=== PATIENT | male | born 1955 | race Hispanic/Latino ===

== ENCOUNTER 2024-07-27 12:16 | Inpatient (IN) | payer OTHER ==
[2024-07-27 13:04] LABS: #Basophils 0.03 10x3/uL (0.0-0.2); %Basophils 0.4 % (0.0-1.0); %Eosinophils 1.1 % (0.0-10.0); %Lymphocytes 12.2 % (21.0-51.0); %Monocytes 6.2 % (0.0-10.0); %Neutrophils 79.8 % (42.0-75.0); Hematocrit 34.6 % (42.0-52.0); Hemoglobin 11.3 g/dL (14.0-18.0); Mean Corpuscular HGB CONC 32.7 g/dL (32.0-36.0); Mean Corpuscular Hemoglobin 29.8 pg (27.0-31.0); Mean Corpuscular Volume 91.3 fL (78.0-98.0); Mean Platelet Volume 12.1 fL (7.4-10.4); Platelet Count 135 10x3/uL (130-400); RBC Distribution Width 13.8 % (11.5-14.5); Red Blood Cell (RBC) Count 3.79 mill/uL (4.70-6.10)
[2024-07-27 13:20] LABS: ALT (SGPT) 14 U/L (8-55); AST (SGOT) 24 U/L (5-34); Albumin 4.1 g/dL (3.4-4.8); Alkaline Phosphatase 92 U/L (40-110); Anion Gap 12 mmol/L (10-20); BUN (Urea Nitrogen) 35 mg/dL (8.4-25.7); Bilirubin, Total 0.6 mg/dL (0.2-1.2); Calc. Creatinine Clearance 0 mL/min (70-130); Calcium 8.8 mg/dL (7.8-10.44); Carbon Dioxide 21 mmol/L (23-31); Chloride 110 mmol/L (98-107); Estimated GFR 45; Globulin 3.5 g/dL (2.4-3.5); Glucose 101 mg/dL (80-115); Potassium 4.3 mmol/L (3.5-5.1); Protein, Total 7.6 g/dL (5.8-8.1); Sodium 139 mmol/L (136-145)
[2024-07-27 13:26] LABS: Troponin I Less than 0.010 ng/mL (< 0.028)
[2024-07-27] MEDS ORDERED: Aspirin Chewable 81 MG TAB ONE (13:27)
[2024-07-27 14:09] LABS: INR-International Normal Ratio 3.1; PTT 50.4 sec (22.9-36.1); Prothrombin Time 32.2 sec (12.0-14.7)
[2024-07-27] MEDS ORDERED: Morphine 4 MG/ML VIAL ONE (15:22)
[2024-07-27] MEDS ORDERED: Nitroglycerin 0.4 MG TAB 1 EACH ONE (15:23)
[2024-07-27] MEDS ORDERED: traMADol HCl 50 MG TAB PO PRN ×2 (16:07→18:01)
[2024-07-27] MEDS ORDERED: Calcium Carbonate 500 MG ChewTAB PO PRN (16:07)
[2024-07-27 18:48] VITALS: BMI 26.2
[2024-07-27 19:14] LABS: Troponin I 0.012 ng/mL (< 0.028)
[2024-07-27] MEDS: Metoprolol Tartrate 25 MG TAB PO SCH (20:34)
[2024-07-27] MEDS ORDERED: Heparin 5,000 UNITS/ML VIAL SC SCH (21:00)
[2024-07-27] MEDS: Morphine 2 MG/ML VIAL SLOW IVP PRN (23:51)
[2024-07-28 01:12] LABS: Troponin I 0.017 ng/mL (< 0.028)
[2024-07-28 04:42] LABS: #Basophils 0.05 10x3/uL (0.0-0.2); %Basophils 0.8 % (0.0-1.0); %Eosinophils 2.2 % (0.0-10.0); %Lymphocytes 21.5 % (21.0-51.0); %Monocytes 10.1 % (0.0-10.0); %Neutrophils 65.1 % (42.0-75.0); Hematocrit 34.4 % (42.0-52.0); Mean Corpuscular Hemoglobin 29.3 pg (27.0-31.0); Mean Corpuscular Volume 91.7 fL (78.0-98.0); Mean Platelet Volume 12.4 fL (7.4-10.4); Platelet Count 151 10x3/uL (130-400); RBC Distribution Width 13.9 % (11.5-14.5); Red Blood Cell (RBC) Count 3.75 mill/uL (4.70-6.10)
[2024-07-28 04:54] LABS: INR-International Normal Ratio 2.7; Prothrombin Time 28.6 sec (12.0-14.7)
[2024-07-28 05:18] LABS: Hemoglobin A1c 5.3 % (4.0-6.0)
[2024-07-28 05:25] LABS: Anion Gap 11 mmol/L (10-20); BUN (Urea Nitrogen) 27 mg/dL (8.4-25.7); Calc. Creatinine Clearance 49 mL/min (70-130); Calcium 8.8 mg/dL (7.8-10.44); Carbon Dioxide 23 mmol/L (23-31); Cardiac Risk 4.8 (Less than 4.5); Chloride 109 mmol/L (98-107); Cholesterol 169 mg/dl (< 200 Desired); Estimated GFR 48; Glucose 86 mg/dL (80-115); HDL Cholesterol 35 mg/dL (>60 Neg Risk); LDL Cholesterol, Calculated 106 mg/dL; Sodium 139 mmol/L (136-145); Triglycerides 139 mg/dL (Less than 150)
[2024-07-28] MEDS: Aspirin Chewable 81 MG TAB PO SCH (08:37)
[2024-07-28] MEDS: dilTIAZem CD 180 MG CAP PO SCH (10:46)
[2024-07-28] MEDS: Warfarin Sodium 3 MG TAB PO SCH (17:37)
[2024-07-28] MEDS: DOBUTamine 500 mg/250 ml 250 ML IVPB SCH (18:02)
[2024-07-29] MEDS: Lorazepam 2 MG/ML VIAL SLOW IVP SCH (01:00)
[2024-07-29 04:05] LABS: #Basophils Less than 0.03 10x3/uL (0.0-0.2); %Basophils 0.3 % (0.0-1.0); %Eosinophils 1.8 % (0.0-10.0); %Lymphocytes 22.4 % (21.0-51.0); %Monocytes 9.3 % (0.0-10.0); Hematocrit 36.4 % (42.0-52.0); Hemoglobin 12.1 g/dL (14.0-18.0); Mean Corpuscular HGB CONC 33.2 g/dL (32.0-36.0); Mean Corpuscular Hemoglobin 29.7 pg (27.0-31.0); Mean Corpuscular Volume 89.2 fL (78.0-98.0); Mean Platelet Volume 11.9 fL (7.4-10.4); Platelet Count 130 10x3/uL (130-400); RBC Distribution Width 13.7 % (11.5-14.5); Red Blood Cell (RBC) Count 4.08 mill/uL (4.70-6.10)
[2024-07-29 04:22] LABS: INR-International Normal Ratio 2.4
[2024-07-29 04:23] LABS: Anion Gap 14 mmol/L (10-20); BUN (Urea Nitrogen) 29 mg/dL (8.4-25.7); Calc. Creatinine Clearance 55 mL/min (70-130); Calcium 9.5 mg/dL (7.8-10.44); Carbon Dioxide 18 mmol/L (23-31); Chloride 110 mmol/L (98-107); Estimated GFR 55; Glucose 86 mg/dL (80-115); Potassium 4.2 mmol/L (3.5-5.1); Sodium 138 mmol/L (136-145)
[2024-07-29] MEDS ORDERED: dilTIAZem CD 120 MG CAP PO SCH (09:00)
[2024-07-29] MEDS ORDERED: dilTIAZem CD 180 MG CAP PO SCH (09:00)
[2024-07-29] MEDS: NIFEdipine XL 60 MG ER.TAB PO SCH (18:05)
[2024-07-29] MEDS: Tamsulosin HCl 0.4 MG CAP PO SCH (18:05)
[2024-07-29] MEDS: Nitroglycerin 0.4 MG TAB (25 Tab Bottle) SL PRN (21:59)
[2024-07-30 05:51] LABS: #Basophils 0.04 10x3/uL (0.0-0.2); %Basophils 0.6 % (0.0-1.0); %Eosinophils 1.8 % (0.0-10.0); %Lymphocytes 17.4 % (21.0-51.0); %Monocytes 8.9 % (0.0-10.0); Hematocrit 34.5 % (42.0-52.0); Hemoglobin 11.4 g/dL (14.0-18.0); Mean Corpuscular Hemoglobin 29.4 pg (27.0-31.0); Mean Corpuscular Volume 88.9 fL (78.0-98.0); Mean Platelet Volume 12.3 fL (7.4-10.4); Platelet Count 146 10x3/uL (130-400); RBC Distribution Width 13.6 % (11.5-14.5); Red Blood Cell (RBC) Count 3.88 mill/uL (4.70-6.10)
[2024-07-30 06:05] LABS: INR-International Normal Ratio 2.4; PTT 38.1 sec (22.9-36.1); Prothrombin Time 26.2 sec (12.0-14.7)
[2024-07-30 06:08] LABS: Anion Gap 12 mmol/L (10-20); BUN (Urea Nitrogen) 35 mg/dL (8.4-25.7); Calc. Creatinine Clearance 39 mL/min (70-130); Calcium 9.1 mg/dL (7.8-10.44); Carbon Dioxide 22 mmol/L (23-31); Chloride 105 mmol/L (98-107); Estimated GFR 37; Glucose 93 mg/dL (80-115); Potassium 4.3 mmol/L (3.5-5.1); Sodium 135 mmol/L (136-145)
[2024-07-30] MEDS: NIFEdipine XL 60 MG ER.TAB PO SCH (08:44)
[2024-07-30] MEDS: Losartan 25 MG TAB PO SCH (08:45)
[2024-07-30] MEDS: Tamsulosin HCl 0.4 MG CAP PO SCH (08:45)
[2024-07-30] MEDS: Acetaminophen 325 MG TAB PO PRN (09:37)
[2024-07-30 12:17] LABS: Troponin I 0.018 ng/mL (< 0.028)
[2024-07-30] MEDS: Lactated Ringer's 500 ML IV SCH (13:21)
[2024-07-30] MEDS: Enoxaparin 60 MG (0.6 mL) SYRINGE SC SCH (14:01)
[2024-07-30 14:58] LABS: Troponin I 0.019 ng/mL (< 0.028)
[2024-07-30 17:00] LABS: Troponin I 0.022 ng/mL (< 0.028)
[2024-07-30] MEDS: Enoxaparin 80 MG (0.8 mL) SYRINGE SC SCH (20:45)
[2024-07-30] MEDS: Melatonin 3 MG TAB PO PRN (22:04)
[2024-07-31 05:14] LABS: #Basophils 0.03 10x3/uL (0.0-0.2); %Basophils 0.5 % (0.0-1.0); %Eosinophils 2.2 % (0.0-10.0); %Lymphocytes 19.4 % (21.0-51.0); %Monocytes 8.9 % (0.0-10.0); %Neutrophils 68.5 % (42.0-75.0); Hematocrit 33.1 % (42.0-52.0); Hemoglobin 11.1 g/dL (14.0-18.0); Mean Corpuscular HGB CONC 33.5 g/dL (32.0-36.0); Mean Corpuscular Hemoglobin 29.4 pg (27.0-31.0); Mean Corpuscular Volume 87.8 fL (78.0-98.0); Platelet Count 151 10x3/uL (130-400); RBC Distribution Width 13.7 % (11.5-14.5); Red Blood Cell (RBC) Count 3.77 mill/uL (4.70-6.10)
[2024-07-31 05:27] LABS: INR-International Normal Ratio 2.5; PTT 67.8 sec (22.9-36.1); Prothrombin Time 26.9 sec (12.0-14.7)
[2024-07-31 05:30] LABS: Anion Gap 12 mmol/L (10-20); BUN (Urea Nitrogen) 35 mg/dL (8.4-25.7); Calc. Creatinine Clearance 47 mL/min (70-130); Calcium 8.8 mg/dL (7.8-10.44); Carbon Dioxide 21 mmol/L (23-31); Chloride 108 mmol/L (98-107); Estimated GFR 46; Glucose 81 mg/dL (80-115); Sodium 137 mmol/L (136-145)
[2024-07-31] MEDS: Enoxaparin 80 MG (0.8 mL) SYRINGE SC SCH (09:08)
[2024-07-31] MEDS: Nitroglycerin 0.4mg/Hour PATCH TD SCH (09:13)
[2024-07-31] MEDS: oxyCODONE 5 MG TAB PO PRN (15:29)
[2024-07-31] MEDS: Acetaminophen 500 MG TAB PO SCH (20:05)
[2024-08-01 05:19] LABS: #Basophils 0.04 10x3/uL (0.0-0.2); %Basophils 0.4 % (0.0-1.0); %Lymphocytes 10.9 % (21.0-51.0); %Monocytes 8.9 % (0.0-10.0); %Neutrophils 78.4 % (42.0-75.0); Hematocrit 37.2 % (42.0-52.0); Hemoglobin 12.7 g/dL (14.0-18.0); Mean Corpuscular HGB CONC 34.1 g/dL (32.0-36.0); Mean Corpuscular Hemoglobin 30.1 pg (27.0-31.0); Mean Corpuscular Volume 88.2 fL (78.0-98.0); Mean Platelet Volume 12.2 fL (7.4-10.4); Platelet Count 177 10x3/uL (130-400); RBC Distribution Width 13.5 % (11.5-14.5); Red Blood Cell (RBC) Count 4.22 mill/uL (4.70-6.10)
[2024-08-01 05:29] LABS: INR-International Normal Ratio 2.1; Prothrombin Time 23.8 sec (12.0-14.7)
[2024-08-01 05:30] LABS: PTT 66.2 sec (22.9-36.1)
[2024-08-01 05:39] LABS: Anion Gap 10 mmol/L (10-20); BUN (Urea Nitrogen) 30 mg/dL (8.4-25.7); Calc. Creatinine Clearance 48 mL/min (70-130); Calcium 9.1 mg/dL (7.8-10.44); Carbon Dioxide 24 mmol/L (23-31); Chloride 105 mmol/L (98-107); Estimated GFR 49; Glucose 98 mg/dL (83-110); Potassium 4.4 mmol/L (3.5-5.1); Sodium 135 mmol/L (136-145)
[2024-08-01] MEDS: Digoxin 0.5 MG/2 ML AMP SLOW IVP SCH (15:59)
[2024-08-01] MEDS: Metoprolol Tartrate 25 MG TAB PO SCH ×2 (16:00→20:10)
[2024-08-01] MEDS: oxyCODONE 5 MG TAB PO PRN (20:08)
[2024-08-01] MEDS: Enoxaparin 80 MG (0.8 mL) SYRINGE SC SCH (20:09)
[2024-08-02 04:11] LABS: #Basophils 0.03 10x3/uL (0.0-0.2); %Basophils 0.3 % (0.0-1.0); %Eosinophils 0.3 % (0.0-10.0); %Lymphocytes 9.1 % (21.0-51.0); %Monocytes 14.2 % (0.0-10.0); %Neutrophils 75.9 % (42.0-75.0); Hemoglobin 12.3 g/dL (14.0-18.0); Mean Corpuscular HGB CONC 33.2 g/dL (32.0-36.0); Mean Corpuscular Hemoglobin 29.1 pg (27.0-31.0); Mean Corpuscular Volume 87.5 fL (78.0-98.0); Mean Platelet Volume 12.5 fL (7.4-10.4); Platelet Count 172 10x3/uL (130-400); RBC Distribution Width 13.4 % (11.5-14.5); Red Blood Cell (RBC) Count 4.23 mill/uL (4.70-6.10)
[2024-08-02 04:28] LABS: Anion Gap 13 mmol/L (10-20); BUN (Urea Nitrogen) 22 mg/dL (8.4-25.7); Calc. Creatinine Clearance 56 mL/min (70-130); Carbon Dioxide 21 mmol/L (23-31); Chloride 104 mmol/L (98-107); Estimated GFR 60; Glucose 96 mg/dL (83-110); Potassium 4.1 mmol/L (3.5-5.1); Sodium 134 mmol/L (136-145)
[2024-08-02 04:51] LABS: Prothrombin Time 22.4 sec (12.0-14.7)
[2024-08-02] MEDS ORDERED: Communication Order-Pharmacy FS SCH (10:00)
[2024-08-02] MEDS: Phytonadione 10 MG/ML AMP SC SCH (10:30)
[2024-08-02] MEDS: Senokot S 8.6-50 MG TAB PO PRN (20:30)
[2024-08-02] MEDS: QUEtiapine 25 MG TAB PO SCH (20:30)
[2024-08-02] MEDS: Enoxaparin 80 MG (0.8 mL) SYRINGE SC SCH (20:34)
[2024-08-03 03:59] LABS: #Basophils 0.03 10x3/uL (0.0-0.2); %Basophils 0.5 % (0.0-1.0); %Eosinophils 1.6 % (0.0-10.0); %Lymphocytes 24.5 % (21.0-51.0); %Monocytes 15.8 % (0.0-10.0); %Neutrophils 57.4 % (42.0-75.0); Hematocrit 33.2 % (42.0-52.0); Hemoglobin 10.8 g/dL (14.0-18.0); Mean Corpuscular HGB CONC 32.5 g/dL (32.0-36.0); Mean Corpuscular Hemoglobin 29.3 pg (27.0-31.0); Mean Corpuscular Volume 90.2 fL (78.0-98.0); Mean Platelet Volume 12.1 fL (7.4-10.4); Platelet Count 165 10x3/uL (130-400); RBC Distribution Width 13.6 % (11.5-14.5); Red Blood Cell (RBC) Count 3.68 mill/uL (4.70-6.10)
[2024-08-03 04:11] LABS: INR-International Normal Ratio 1.4; Prothrombin Time 17.5 sec (12.0-14.7)
[2024-08-03 04:23] LABS: Anion Gap 12 mmol/L (10-20); BUN (Urea Nitrogen) 29 mg/dL (8.4-25.7); Calc. Creatinine Clearance 46 mL/min (70-130); Calcium 8.9 mg/dL (7.8-10.44); Carbon Dioxide 22 mmol/L (23-31); Chloride 105 mmol/L (98-107); Estimated GFR 45; Glucose 87 mg/dL (83-110); Sodium 135 mmol/L (136-145)
[2024-08-03] MEDS: Sodium Chloride 0.9% 1,000 ML IV SCH (06:04)
[2024-08-03] MEDS ORDERED: Iopamidol 370 76% 100 ML VIAL ONE (08:54)
[2024-08-03] MEDS ORDERED: fentaNYL 50 mcg/mL 1 mL Vial ONE ×2 (09:56→10:41)
[2024-08-03] MEDS ORDERED: Midazolam HCl 2 mg/2 ml Vial ONE (09:56)
[2024-08-03] MEDS ORDERED: Nitroglycerin 0.4 MG TAB (25 Tab Bottle) SL PRN (10:49)
[2024-08-03] MEDS ORDERED: Sodium Chloride 0.9% 200 ML IV PRN (10:49)
[2024-08-03 11:50] VITALS: BMI 25.8
[2024-08-03] MEDS: Acetaminophen/Codeine 30-300mg Tablet PO PRN (12:55)
[2024-08-03] MEDS: Amlodipine 5 MG TAB PO SCH (14:37)
[2024-08-03] MEDS: Nitroglycerin 0.4 MG TAB (25 Tab Bottle) SL PRN (14:40)
[2024-08-03] MEDS: Enoxaparin 30 MG (0.3 mL) SYRINGE SC SCH (20:10)
[2024-08-04 04:10] LABS: #Basophils 0.03 10x3/uL (0.0-0.2); %Basophils 0.5 % (0.0-1.0); %Eosinophils 1.9 % (0.0-10.0); %Lymphocytes 21.2 % (21.0-51.0); %Monocytes 11.4 % (0.0-10.0); %Neutrophils 64.7 % (42.0-75.0); Hematocrit 34.1 % (42.0-52.0); Mean Corpuscular HGB CONC 32.3 g/dL (32.0-36.0); Mean Corpuscular Hemoglobin 28.9 pg (27.0-31.0); Mean Corpuscular Volume 89.5 fL (78.0-98.0); Mean Platelet Volume 12.8 fL (7.4-10.4); Platelet Count 166 10x3/uL (130-400); RBC Distribution Width 13.7 % (11.5-14.5); Red Blood Cell (RBC) Count 3.81 mill/uL (4.70-6.10)
[2024-08-04 04:24] LABS: INR-International Normal Ratio 1.2; Prothrombin Time 15.6 sec (12.0-14.7)
[2024-08-04 04:25] LABS: PTT 44.1 sec (22.9-36.1)
[2024-08-04 04:28] LABS: Anion Gap 12 mmol/L (10-20); BUN (Urea Nitrogen) 30 mg/dL (8.4-25.7); Calc. Creatinine Clearance 53 mL/min (70-130); Calcium 8.9 mg/dL (7.8-10.44); Carbon Dioxide 23 mmol/L (23-31); Chloride 107 mmol/L (98-107); Estimated GFR 54; Glucose 86 mg/dL (83-110); Potassium 4.3 mmol/L (3.5-5.1); Sodium 138 mmol/L (136-145)
[2024-08-04] MEDS: Amlodipine 5 MG TAB PO SCH (08:49)
[2024-08-04] MEDS: Warfarin Sodium 3 MG TAB PO SCH ×2 (17:30→18:21)
[2024-08-04] MEDS: Enoxaparin 40 MG (0.4 mL) SYRINGE SC SCH (20:41)
[2024-08-04] MEDS ORDERED: Enoxaparin 60 MG (0.6 mL) SYRINGE SC SCH (21:00)
[2024-08-05 04:21] LABS: #Basophils 0.03 10x3/uL (0.0-0.2); %Basophils 0.4 % (0.0-1.0); %Eosinophils 1.7 % (0.0-10.0); %Lymphocytes 22.3 % (21.0-51.0); %Monocytes 9.3 % (0.0-10.0); Hemoglobin 12.2 g/dL (14.0-18.0); Mean Corpuscular Volume 88.1 fL (78.0-98.0); Mean Platelet Volume 12.1 fL (7.4-10.4); Platelet Count 197 10x3/uL (130-400); RBC Distribution Width 13.5 % (11.5-14.5)
[2024-08-05 04:35] LABS: INR-International Normal Ratio 1.1; Prothrombin Time 14.2 sec (12.0-14.7)
[2024-08-05 04:36] LABS: PTT 41.9 sec (22.9-36.1)
[2024-08-05 04:39] LABS: Anion Gap 13 mmol/L (10-20); BUN (Urea Nitrogen) 25 mg/dL (8.4-25.7); Calc. Creatinine Clearance 56 mL/min (70-130); Calcium 9.9 mg/dL (7.8-10.44); Carbon Dioxide 23 mmol/L (23-31); Chloride 104 mmol/L (98-107); Estimated GFR 57; Glucose 93 mg/dL (83-110); Potassium 4.2 mmol/L (3.5-5.1); Sodium 136 mmol/L (136-145)
[2024-08-05] MEDS: HYDROcodone/Acetaminophen 5/325 mg Tablet PO SCH (10:33)
[2024-08-05 10:48] LABS: Troponin I Less than 0.010 ng/mL (< 0.028)
[2024-08-05] MEDS: Metoprolol Tartrate 25 MG TAB PO SCH ×2 (17:19→20:22)
[2024-08-05] MEDS: Warfarin Sodium 3 MG TAB PO SCH (17:20)
[2024-08-05] MEDS: Isosorbide Mononitrate 30 MG ER.TAB PO SCH (17:20)
[2024-08-05] MEDS: Melatonin 3 MG TAB PO PRN (20:25)
[2024-08-06 03:57] LABS: #Basophils Less than 0.03 10x3/uL (0.0-0.2); %Basophils 0.4 % (0.0-1.0); %Eosinophils 1.8 % (0.0-10.0); %Lymphocytes 21.8 % (21.0-51.0); %Monocytes 10.2 % (0.0-10.0); %Neutrophils 65.6 % (42.0-75.0); Hematocrit 33.1 % (42.0-52.0); Hemoglobin 10.8 g/dL (14.0-18.0); Mean Corpuscular HGB CONC 32.6 g/dL (32.0-36.0); Mean Corpuscular Hemoglobin 29.2 pg (27.0-31.0); Mean Corpuscular Volume 89.5 fL (78.0-98.0); Mean Platelet Volume 11.7 fL (7.4-10.4); Platelet Count 195 10x3/uL (130-400); RBC Distribution Width 13.3 % (11.5-14.5)
[2024-08-06 04:12] LABS: INR-International Normal Ratio 1.2; Prothrombin Time 15.2 sec (12.0-14.7)
[2024-08-06 04:14] LABS: PTT 40.4 sec (22.9-36.1)
[2024-08-06 04:32] LABS: BUN (Urea Nitrogen) 28 mg/dL (8.4-25.7); Calc. Creatinine Clearance 53 mL/min (70-130); Calcium 9.4 mg/dL (7.8-10.44); Carbon Dioxide 22 mmol/L (23-31); Estimated GFR 53; Glucose 94 mg/dL (83-110)
[2024-08-06 05:32] LABS: Anion Gap 13 mmol/L (10-20); Chloride 104 mmol/L (98-107); Potassium 4.3 mmol/L (3.5-5.1); Sodium 134 mmol/L (136-145)
[2024-08-06 07:42] LABS: Troponin I Less than 0.010 ng/mL (< 0.028)
[2024-08-06] MEDS: Metoprolol Succinate XL 50 MG ER.TAB PO SCH (07:58)
[2024-08-06] MEDS ORDERED: Metoprolol Tartrate 25 MG TAB PO SCH (09:00)
[2024-08-06] MEDS: Isosorbide Mononitrate 30 MG ER.TAB PO SCH (09:29)
[2024-08-06] MEDS: Enoxaparin 80 MG (0.8 mL) SYRINGE SC SCH (20:39)
[2024-08-07] MEDS: Latanoprost 0.005% Ophth Soln 2.5 ml Bottle EA EYE SCH (03:18)
[2024-08-07 04:07] LABS: #Basophils 0.03 10x3/uL (0.0-0.2); %Basophils 0.6 % (0.0-1.0); %Eosinophils 1.8 % (0.0-10.0); %Lymphocytes 28.2 % (21.0-51.0); %Monocytes 9.1 % (0.0-10.0); %Neutrophils 60.1 % (42.0-75.0); Hemoglobin 10.9 g/dL (14.0-18.0); Mean Corpuscular Hemoglobin 29.2 pg (27.0-31.0); Mean Corpuscular Volume 88.5 fL (78.0-98.0); Mean Platelet Volume 11.9 fL (7.4-10.4); Platelet Count 204 10x3/uL (130-400); RBC Distribution Width 13.5 % (11.5-14.5); Red Blood Cell (RBC) Count 3.73 mill/uL (4.70-6.10)
[2024-08-07 04:29] LABS: Anion Gap 12 mmol/L (10-20); BUN (Urea Nitrogen) 30 mg/dL (8.4-25.7); Calc. Creatinine Clearance 49 mL/min (70-130); Calcium 9.2 mg/dL (7.8-10.44); Carbon Dioxide 23 mmol/L (23-31); Chloride 105 mmol/L (98-107); Estimated GFR 49; Glucose 85 mg/dL (83-110); Potassium 4.2 mmol/L (3.5-5.1); Sodium 136 mmol/L (136-145)
[2024-08-07 04:31] LABS: INR-International Normal Ratio 1.4; Prothrombin Time 17.6 sec (12.0-14.7)
[2024-08-07] MEDS: Amlodipine 5 MG TAB PO SCH (08:39)
[2024-08-07] MEDS: Metoprolol Succinate XL 50 MG ER.TAB PO SCH (08:43)
[2024-08-07] MEDS: FLU (Fluad Triv) TS24-25 (65UP)/MF59C/PF 45 MCG/0.5 ML Syringe IM ONE (09:27)
[2024-08-08 04:16] LABS: INR-International Normal Ratio 1.7; Prothrombin Time 19.9 sec (12.0-14.7)
[2024-08-09 04:34] LABS: #Basophils 0.04 10x3/uL (0.0-0.2); %Basophils 0.6 % (0.0-1.0); %Eosinophils 1.4 % (0.0-10.0); %Lymphocytes 25.9 % (21.0-51.0); %Monocytes 8.7 % (0.0-10.0); %Neutrophils 63.1 % (42.0-75.0); Hematocrit 35.9 % (42.0-52.0); Hemoglobin 11.8 g/dL (14.0-18.0); Mean Corpuscular HGB CONC 32.9 g/dL (32.0-36.0); Mean Corpuscular Volume 88.2 fL (78.0-98.0); Mean Platelet Volume 11.6 fL (7.4-10.4); Platelet Count 220 10x3/uL (130-400); RBC Distribution Width 13.4 % (11.5-14.5); Red Blood Cell (RBC) Count 4.07 mill/uL (4.70-6.10)
[2024-08-09 04:48] LABS: INR-International Normal Ratio 2.1; Prothrombin Time 23.5 sec (12.0-14.7)
[2024-08-09 04:53] LABS: Anion Gap 13 mmol/L (10-20); BUN (Urea Nitrogen) 30 mg/dL (8.4-25.7); Calc. Creatinine Clearance 51 mL/min (70-130); Calcium 9.6 mg/dL (7.8-10.44); Carbon Dioxide 21 mmol/L (23-31); Chloride 107 mmol/L (98-107); Estimated GFR 50; Glucose 84 mg/dL (83-110); Potassium 4.3 mmol/L (3.5-5.1); Sodium 137 mmol/L (136-145)
[2024-08-09 12:27] VITALS: BP 131/72; TEMP 98.6
[2024-08-09] MEDS ORDERED: Warfarin Sodium 3 MG TAB PO SCH (17:00)
== END 2024-08-09 13:20 | DRG 309 ==
LOC: ERS 12:16 → EEVIPCON 16:03 → ERHOLD 16:03 → 2NO 18:19 → OBSVTOIN 07-28 16:31 → IMCU/EMU 07-28 18:48 → PCU 08-01 18:28
PROVIDERS: ADMIT Internal Medicine; ATTEND Internal Medicine
DX: I48.19 Other persistent atrial fibrillation (principal); I25.110 Atherosclerotic heart disease of native coronary artery with unstable angina pectoris; N17.9 Acute kidney failure, unspecified; F41.9 Anxiety disorder, unspecified; I12.9 Hypertensive chronic kidney disease with stage 1 through stage 4 chronic kidney disease, or unspecified chronic kidney disease; N18.30 Chronic kidney disease, stage 3 unspecified; I49.5 Sick sinus syndrome; S63.501A Unspecified sprain of right wrist, initial encounter; W19.XXXA Unspecified fall, initial encounter; Z53.8 Procedure and treatment not carried out for other reasons; Y92.238 Other place in hospital as the place of occurrence of the external cause; Z95.2 Presence of prosthetic heart valve
CPT/HCPCS: 36415; 36416; 71045; 71275; 74174; 80048; 80053; 80061; 83036; 83735; 83880; 84443; 84484; 85025; 85610; 85730; 93005; 93010; 93306; 93454; 94760; 96374; 96376; 99152; 99153; C1769; C1887; C1894; G0278; G0378; J1160; J1250; J1650; J2060; J2250; J2270; J2272; J3010; J3430; J7120; Q9967